=== PATIENT | male | born 1995 | race Caucasian/White ===

== ENCOUNTER 2019-01-17 23:19 | Emergency (ER) | payer SELFPAY ==
[~2019-01-17] VITALS: Ht 165.1 cm; Wt 98.4 kg
[~2019-01-17 23:19] MED LIST: ALPR0.5T PO; FIORICET PO; FLUO10CA17 PO; HYDR25TA6 PO; LORA-441 PO; LORA1TAB PO
[2019-01-17 23:25] VITALS: BP 142/93; PULSE 80; RESP 17; Ht 165.1 cm; Wt 98.4 kg
== END 2019-01-18 06:52 | disposition left against medical advice (07) ==
LOC: FTE 23:19
DX: Z53.21 Procedure and treatment not carried out due to patient leaving prior to being seen by health care provider (principal)
CPT/HCPCS: 93005